=== PATIENT | female | born 1985 | race Caucasian/White ===

== ENCOUNTER → 2025-04-17 15:11 | Outpatient (REF) | payer OTHER, SELFPAY | LOC: WDC 15:11 | PROVIDERS: ATTENDING PHYSICIAN Nurse Practitioner Family; FAMILY PHYSICIAN Family Medicine | DX: Z12.31 Encounter for screening mammogram for malignant neoplasm of breast (principal) | CPT/HCPCS: 77063; 77067 ==

== ENCOUNTER → 2025-04-20 11:36 | Outpatient (REF) | payer OTHER, SELFPAY | LOC: HWRAD 11:36 | PROVIDERS: ATTENDING PHYSICIAN Family Medicine | DX: E04.1 Nontoxic single thyroid nodule (principal) | CPT/HCPCS: 76536 ==

== ENCOUNTER 2025-09-20 09:24 | Emergency (ER) | payer OTHER, SELFPAY ==
[2025-09-20 09:25] VITALS: BP 140/91
--- NOTE | 2025-09-20 09:56 | ED.GENMED ---
History of Present Illness
General
Chief Complaint: Chest Pain
Time Seen by Provider: 09/20/25 09:56
History of Present Illness
History of Present Illness:
FOCUSED PAST MEDICAL HISTORY
- Anxiety, ADHD, asthma, migraines
REVIEW OF OLD RECORDS
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
Note:
CHIEF COMPLAINT(S)
Chest pain and shortness of breath.
HISTORY OF PRESENT ILLNESS
The patient is a 39-year-old female who presents with chest pain primarily on the left side, described as an aching sensation, and associated with achiness in the left arm. The patient also reports chronic tingling in the arm, which she attributes
to previous neck and shoulder injuries. This tingling is a recurrent symptom. She denies any rash in the underarm area. The discomfort is not exacerbated by movement or change in position. She experienced similar symptoms approximately five years
ago and was informed at that time her heart might be sensitive to alcohol and caffeine. The patient reports a family history of heart issues; her brother underwent emergency mitral valve replacement surgery, but no known coronary artery disease in
the immediate family is noted. Both grandparents have had heart attacks and strokes.
She was supposed to see a sheet metal worker helper in June, but the appointment was postponed to October 08 due to illness. The patient denies experiencing chest pain upon palpation and does not have any difficulty breathing at rest but reports earlier
episodes of breathing difficulty. She experiences shortness of breath with walking and acknowledges potential dehydration today. The patient admits to consuming a significant amount of alcohol the night before, suggesting a possible hangover.
CHRONIC MEDICAL CONDITIONS SIGNIFICANTLY AFFECTING CARE
Chronic neck and shoulder injuries contributing to arm tingling.
FAMILY HISTORY
Both grandparents had heart attacks and strokes. The patients brother had mitral valve replacement surgery.
SOCIAL HISTORY
The patient reports excessive alcohol consumption the previous night.
REVIEW OF SYSTEMS
- Cardiovascular: Chest pain primarily on the left side, pain not influenced by palpation, shortness of breath upon exertion.
- Respiratory: Earlier episodes of difficulty breathing; no increased pain with deep breaths.
- Neurological: Chronic tingling in the left arm.
- Musculoskeletal: Chronic neck and shoulder injuries.
PHYSICAL EXAM
- General: Well appearing in no distress
- HEENT: Moist oral mucosa
- Cardiovascular: No murmurs, normal heart rate, regular rhythm, No chest wall tenderness
- Pulmonary: No respiratory distress, breath sounds are clear and equal
- Abdomen: Soft with no peritoneal signs, no tenderness
- Neurologic: Excellent strength all extremities, no coordination deficits
- Psychiatric: Appropriate mental status, normal insight and judgement
- Extremities: Nontender, no edema, moves all extremities equally, there is mild tenderness left mid axillary line
- Skin: No rash, no lesions
PROBLEM LIST
- Acute chest pain
- Shortness of breath
- Excessive alcohol consumption (possible hangover)
PLAN
1. Conduct cardiac blood work to rule out myocardial infarction.
2. Consider a chest X-ray for further evaluation.
3. Administer intravenous fluids to address potential dehydration.
4. Provide an anti-inflammatory medication (Toradol) via IV to alleviate chest discomfort.
DIFFERENTIAL DIAGNOSIS
The Differential Diagnosis includes, in no particular order and is not limited to:
1. Acute coronary syndrome
2. Myocardial infarction
3. Gastroesophageal reflux disease
4. Costochondritis
5. Panic attack
6. Pulmonary embolism
7. Musculoskeletal pain
8. Acute pericarditis
9. Aortic dissection
10. Pleuritic chest pain
RADIOLOGY
- I see no clear sign of abnormality on chest x-ray
EKG
- Sinus 91, normal axis, nonspecific ST abnormality
LABS
- Troponin less than 0.012, chemistries and CBC unremarkable
SUMMARY OF ENCOUNTER
The patient, a 39-year-old female, presented to the emergency department with chest pain on the left side and associated shortness of breath. The chest pain was similar to previous episodes experienced five years ago. With the patients significant
family history of cardiac conditions and recent excessive alcohol consumption, there was a need for comprehensive evaluation. In the emergency department, cardiac blood work, including troponin, was conducted to rule out a myocardial infarction, and
a chest X-ray was performed to assess for any acute issues. The results of the cardiac blood work and the EKG were unremarkable, suggesting that the chest pain may not be of cardiac origin. The patients symptoms improved following the administration
of intravenous Toradol for relief.
DISPOSITION
Discharge
ASSESSMENT
Acute chest pain with possible non-cardiac origin after negative cardiac workup including EKG and cardiac blood work.
EMERGENCY TREATMENTS ADMINISTERED
A dose of ketorolac (Toradol) was given intravenously.
PLAN
The patient should have a follow-up with her sheet metal worker helper at [facility], potentially sooner than the originally scheduled appointment on October 08. Efforts were made to expedite her cardiology follow-up given the acute symptoms and
significant family cardiac history.
INDEPENDENT REVIEW OF LABS AND INTERPRETATION OF TESTS
My independent review of the cardiac blood work shows that there is no indication of a myocardial infarction, with unremarkable troponin levels. My independent chest x-ray interpretation is that it is within normal limits and does not show any acute
findings.
PATIENT EDUCATION AND COUNSELING
The patient was educated on the importance of timely follow-up with cardiology due to her family history and the recurrence of symptoms. Advised on the potential impact of excessive alcohol consumption on cardiac health and the need to monitor and
manage any recurrent symptoms.
FOLLOW-UP INSTRUCTIONS
Please follow up with [facility] for a sooner appointment than the current one on October 08.
MEDICATION RECONCILIATION
Ketorolac (Toradol) was administered intravenously for pain relief during the visit.
MEDICAL DECISION MAKING
-Complexity of Data Reviewed: Chronic conditions affecting care include a history of neck and shoulder injuries contributing to arm tingling. Differential diagnoses considered include acute coronary syndrome, myocardial infarction, gastroesophageal
reflux disease, costochondritis, panic attack, pulmonary embolism, musculoskeletal pain, acute pericarditis, aortic dissection, and pleuritic chest pain.
-Data:
Category 1
My independent review of the EKG and cardiac blood work, as well as the chest x-ray, revealed no acute abnormalities.
-Risk:
Consideration of Admission/Observation: Escalation of care including admission/observation was considered given the complexity and risk of the patients presenting complaint, exam findings, and their underlying comorbidities. However, ultimately I
feel the patient is safe for outpatient management with close follow-up. Reasoning: Work-up reassuring, does not reveal any acute life/organ-threatening processes, patients symptoms well controlled upon reevaluation, reexamination is reassuring,
vitals are stable, patient agreeable with discharge, reliable for follow-up.
DIAGNOSIS
Chest pain, unspecified (ICD-10: R07.9)
UPDATE
- Feels improved after Toradol given
- She also questioned the possibility of anxiety
- She states she was going to see [facility] in September but I have also use low risk cardiology outpatient follow-up discharge paperwork
Past History
Past History
ED Past Medical History: None
ED Past Surgical History: None
Social History
Tobacco: Non-smoker
Alcohol: Occasional
Drug: None
Family History
Family History: Negative Diabetes, Hypertension or CAD
Phy Exam
Physical Exam
Physical Exam:
See HPI
Scores
Heart Score for Chest Pain Patients
STEMI patient?: Not applicable
Course
Orders/Labs/Results
Orders:
Orders
09/20/25 09:27
EKG [Electrocardiogram (*1)] Urgent
Reason for Study: Chest Pain
EKG- Treatment ONCE
09/20/25 10:02
0.9% Sodium Chloride 1000 ml [Nss] 1,000 ml IV BOLUS
Ketorolac [Toradol] 15 mg IV NOW STA
09/20/25 10:03
CR Chest - 2 Views Urgent
Comment:
Reason For Exam: L CP
09/20/25 10:05
Complete Blood Count/With Diff Urgent
Comprehensive Metabolic Panel Urgent
Troponin I Urgent
Abnormal Lab Results
09/20/25
10:05
MPV 10.5 H fL
(7.4-10.4)
Absolute Neuts (auto) 6.9 H 10^3/uL
(1.4-6.5)
Lymphocytes % 16.7 L %
(20.5-51.1)
Glucose 107 H mg/dl
(70-99)
09/20/25 10:05
09/20/25 10:05
Vital Signs
Initial and Last Documented VS:
Initial Vital Signs
Temp Pulse Resp BP Pulse Ox
36.8 C 102 16 140/91 98
09/20/25 09:25 09/20/25 09:25 09/20/25 09:25 09/20/25 09:25 09/20/25 09:25
Last Documented Vital Signs
Temp Pulse Resp BP Pulse Ox
36.8 C 81 19 118/77 99
09/20/25 09:25 09/20/25 11:45 09/20/25 11:45 09/20/25 11:01 09/20/25 11:45
*Pulse Oximetry
SaO2: 98
Oxygen Mode of Delivery: Room air
Patient hypoxic: no
*Critical Care Note
Total Time (30-74mins, 75-104mins- exclusive of procedures): Not Applicable
ED Attending Note
-
Portions of this chart may have been created with voice recognition software.� Occasional wrong word or��sound alike� substitutions may have occurred due to the inherent limitations of voice recognition software.
Discharge Plan
Departure
Patient Disposition: Home (Routine Discharge)
Date of Disposition: 09/20/25
Time of Disposition: 12:32
Patient with high blood pressure during this ER visit?: Yes
Discharge Problem:
Chest pain
Instructions: Chest Pain DCA Follow Up, BLOOD PRESSURE
Prescriptions:
No Action
Loratadine [Claritin] 10 MG Tablet
10 mg PO DAILY
hydrocodone-acetaminophen 1 TABLET tablet
1 tab PO Q4HPRN PRN (Reason: pain) Qty: 15 0RF
Referrals:
Jean Gustafson DO [Family Provider, Family Practice]
Darshan Rader MD [Active, Cardiology]
Activity Restrictions/Additional Instructions:
Follow-up with [facility] such as with Dr. Rodarte. Return if worse or other concerns. EKG and cardiac blood work showed no sign of heart attack.
Interventions
Interventions:
*General Assessment Last Done: 09/20/25 09:25
*Neglect/Abuse Screening Last Done: 09/20/25 09:25
*ED COVID-19 Vaccine History Last Done: 09/20/25 10:30
*ED Influenza Vaccine History Last Done: 09/20/25 10:30
*Risk Screen - Suicide (C-SSRS) Last Done: 09/20/25 09:25
*Nursing Disposition Last Done: 09/20/25 13:04
ED- Cardiac Assessment Last Done: 09/20/25 10:30
Discharge Date and Time
Discharge Date/Time: 09/20/25 13:05
Print Language: [id number]
[2025-09-20] MEDS: NSS 1000 IV (10:08)
[2025-09-20] MEDS: TORADOL 15 MG IV (10:10)
[2025-09-20 10:13] LABS: Hematocrit 37.2 % (37.0-47.0); Hemoglobin 12.8 g/dL (12.0-16.0); Mean Corp Hgb Conc. 34.4 g/dL (33.0-37.0); Mean Corpuscular Volume 88.6 fL (81.0-99.0); Nucleated Red Blood Cells % 0 %; Platelet Count 272 10^3/uL (130-400); Red Cell Dist. Width 13.4 % (11.5-14.5)
[2025-09-20 10:41] LABS: Troponin I < 0.012 ng/ml
[2025-09-20 10:53] LABS: ALT (SGPT) 17 U/L (0-35); AST (SGOT) 18 U/L (14-36); Albumin 4.3 g/dl (3.5-5.0); Alkaline Phosphatase 89 U/L (38-126); Blood Urea Nitrogen 12 mg/dl (7-17); Calcium 8.9 mg/dl (8.4-10.2); Carbon Dioxide 24 mmol/L (22-30); Chloride 105 mmol/L (98-107); Glucose 107 mg/dl (70-99); Potassium 4.2 mmol/L (3.5-5.1); Sodium 136 mmol/L (135-145); Total Protein 6.9 g/dl (6.3-8.2); eGFR > 60.00
[2025-09-20 11:01] VITALS: BP 118/77
== END 2025-09-20 13:05 | disposition home or self-care (01) ==
LOC: EMR 09:24
PROVIDERS: EMERGENCY PHYSICIAN Emergency Medicine; FAMILY PHYSICIAN Family Medicine
DX: R07.9 Chest pain, unspecified (principal); R20.2 Paresthesia of skin; J45.909 Unspecified asthma, uncomplicated
CPT/HCPCS: 99285; 96374; 96361; 71046; 80053; 84484; 85025; 93005